=== PATIENT | female | born 1995 | race Two or more races ===

== ENCOUNTER 2021-10-06 21:34 | Emergency (ER) | payer MEDICAID ==
[~2021-10-06] VITALS: Ht 160 cm; Wt 74.8 kg
[2021-10-06] MEDS ORDERED: IPRATROPIUM BROM 0.5 MG/2.5ML INH SOL NEB ONE (22:00)
[2021-10-06] MEDS ORDERED: ALBUTEROL SULF 2.5 MG/0.5ML(0.5%) NEB SOLN NEB ONE (22:00)
[2021-10-06] MEDS ORDERED: ALBU108A5 IN (23:35)
[2021-10-06] MEDS ORDERED: PRED20TA2 PO (23:35)
[2021-10-06] MEDS ORDERED: ALBU0.084 NEB (23:35)
[2021-10-07 00:40] VITALS: BP 110/75
== END 2021-10-07 00:33 | disposition home or self-care (01) ==
LOC: ER 21:47
DX: J45.901 Unspecified asthma with (acute) exacerbation (principal)
CPT/HCPCS: 93005; 94640; 99283; J7644